=== PATIENT | male | born 1940 | race Caucasian/White ===

== ENCOUNTER 2020-11-02 14:22 | Inpatient (IN) | payer OTHER ==
[~2020-11-02] VITALS: Ht 170.2 cm; Wt 83.0 kg
[~2020-11-02 14:22] MED LIST: ADVAIR 250-501 EACH INH; ASPIRIN81 M2 PO; CRESTOR20 MG PO; GLUCOPHAGE1000 MG PO; HUMALOG100 UNIT/1; HYDROCHLOROTH12.5 MG PO; LANTUSSOLASTAR SUBQ; LISINOPRIL20 MG PO; PLAVIX 75 MG TA75 M1 PO; PROAIR HFA8.5 GM INH; SORINE 80 MG TA80 M1 PO; UROXATRAL PO
[2020-11-02 14:43] VITALS: BP 126/70
[2020-11-02] MEDS ORDERED: LISINOPRIL-HCT1 EAC1 PO (14:49)
[2020-11-02] MEDS ORDERED: TYLENOL325 M1 PO (14:50)
[2020-11-02] MEDS ORDERED: ELIQUIS5 MG PO (14:50)
[2020-11-02] MEDS ORDERED: SYMBICORT160 MCG/4. INH (14:51)
[2020-11-02] MEDS ORDERED: MIRALAX119 GM PO (14:52)
[2020-11-02] MEDS ORDERED: DULCOLAX STOOL100 M1 PO (14:53)
[2020-11-02 16:28] LABS: URINE BILIRUBIN 1+ (Negative); URINE BLOOD 3+ (Negative); URINE CLARITY TURBID; URINE COLOR RED; URINE GLUCOSE-RANDOM* NEGATIVE (Negative); URINE KETONES NEGATIVE (Negative); URINE LEUKOCYTES-REFLEX TRACE (Negative); URINE PROTEIN (DIPSTICK) 3+ (Negative); URINE SPECIFIC GRAVITY 1.025 (1.005-1.035); URINE UROBILINOGEN 0.2 E.U./dl (0.2-1.0)
[2020-11-02 16:29] LABS: URINE NITRITE-REFLEX POSITIVE (Negative)
[2020-11-02 16:30] LABS: ICTOTEST (BILI CONFIRMATORY) Negative (Negative)
[2020-11-02 16:33] LABS: CASTS None Seen /LPF (None Seen); SQUAMOUS None Seen /LPF (0-3); URINE RBC >20 Many /HPF (0-2); URINE WBC-REFLEX >25 Many /HPF (0-5)
[2020-11-02 16:34] LABS: BACTERIA-REFLEX 1-9 Few /HPF (None Seen); CRYSTALS None Seen /LPF (None Seen)
[2020-11-02 16:37] LABS: ABSOLUTE NEUTROPHILS 7.3 thou/uL (1.4-8.2); BASOPHILS 0.5 % (0.0-2.0); EOSINOPHILS 3.9 % (0.0-3.0); HEMATOCRIT 40.4 % (42.0-52.0); HEMOGLOBIN 13.3 gm/dL (14.0-18.0); LYMPHOCYTES 10.2 % (24.0-44.0); MCH 28.7 pg (26.0-34.0); MCHC 32.9 g/dL (28.0-37.0); MCV 87.2 fL (80.0-100.0); MONOCYTES 7.5 % (1.0-8.0); PLATELET COUNT 232 thou/uL (150-400); POLYS 77.9 % (36.0-66.0); RBC 4.63 mil/uL (4.50-6.00); RDW 15.3 % (10.5-14.5); WBC 9.4 thou/uL (4.0-11.0)
[2020-11-02 16:44] LABS: CALCIUM 9.1 mg/dL (8.5-10.1); CREATININE 1.6 mg/dL (0.7-1.3); POTASSIUM 4.8 mmol/L (3.5-5.1)
[2020-11-02 16:51] LABS: ALBUMIN 2.5 g/dL (3.4-5.0); APTT 30.5 Seconds (24.5-32.8); INR 1.1; PROTIME 11.9 Seconds (9.3-11.4); TOTAL BILIRUBIN 0.5 mg/dL (0.2-1.0); TOTAL PROTEIN 6.6 g/dL (6.4-8.2)
[2020-11-02 21:02] VITALS: BP 119/76
[2020-11-02] MEDS ORDERED: SORINE 80 MG TA80 MG PO (21:35)
[2020-11-02] MEDS ORDERED: NAPROSYN500 MG PO (21:35)
[2020-11-02] MEDS ORDERED: LOW DOSE ASPIRI81 M1 PO (21:36)
[2020-11-02] MEDS ORDERED: GLUCOSAMINE CH1 EAC4 PO (21:36)
[2020-11-02] MEDS ORDERED: GLIMEPIRIDE1 MG PO (21:36)
[2020-11-02] MEDS ORDERED: TAMSULOSIN HCL0.4 MG PO (21:37)
[2020-11-02 22:20] VITALS: BP 115/69
[2020-11-03 04:37] VITALS: BP 111/64
--- NOTE | 2020-11-03 05:05 | NUR ---
PT ARRIVED TO UNIT APPROX 2220, SETTLED IN ROOM, ADMISSION AND ASSESSMENT COMPLETED, ALL CONSENTS SIGNED. PT A&Ox4, DENIES SOB--REPORTS HE WEARS 2.5L O2 AT NIGHT FOR COPD (USES A MASK NOT A NC), DENIES NAUSEA. REPORTS LOWER ABD PRESSURE THAT FEELS LIKE HE NEEDS TO URINATE BUT IS UNABLE, OR IF HE DOES URINATE, HE IS UNABLE TO FULLY EMPTY HIS BLADDER. COUDET CATHETER IN PLACE. 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 HE LIVES AT HOME, AND HIS SON LIVES WITH HIM; THE SON HAS A HISTORY OF STROKES AND SEIZURES, AND THE PT HELPS TAKE CARE OF HIM. 2215 FLUSHED THE CATHETER WITH 150 ML STERILE SALINE. PRIOR TO FLUSHING, THE OUTPUT WAS CAMERON RED WITH MANY SMALL CLOTS. POST-IRRIGATION, OUTPUT WAS BRIGHT MARIE RED AND FLOWED EASILY. 0230 IRRIGATED AGAIN WITH 150 ML SALINE. OUTPUT PRIOR TO FLUSH WAS MIXED YELLOW URINE W/BRIGHT RED STREAKS OF BLOOD; AFTER FLUSHING, OUTPUT WAS CLEAR PINK. THIS TIME THERE WAS ALSO A MODERATE AMOUNT OF CAMERON BLOOD AROUND THE INSERTION SITE. PT DOES COMPLAIN OF PAINFUL PRESSURE WHILE IRRIGATING THE CATHETER. HE ALSO SAYS HE IS VERY TENDER ON THE SKIN AROUND THE INSERTION SITE. NO OTHER CONCERNS, WILL CONTINUE TO MONITOR.
[2020-11-03 05:26] LABS: HEMATOCRIT 38.9 % (42.0-52.0); HEMOGLOBIN 12.5 gm/dL (14.0-18.0); MCH 28.3 pg (26.0-34.0); MCHC 32.2 g/dL (28.0-37.0); MCV 87.9 fL (80.0-100.0); RBC 4.42 mil/uL (4.50-6.00); RDW 15.5 % (10.5-14.5); WBC 8.7 thou/uL (4.0-11.0)
[2020-11-03 05:48] LABS: ALBUMIN 1.9 g/dL (3.4-5.0); CALCIUM 8.6 mg/dL (8.5-10.1); CREATININE 1.3 mg/dL (0.7-1.3); POTASSIUM 4.2 mmol/L (3.5-5.1); TOTAL BILIRUBIN 0.4 mg/dL (0.2-1.0)
--- NOTE | 2020-11-03 07:07 | EKG ---
[address] [place] [address] ELECTROCARDIOGRAM REPORT Name: DIAMOND NARAYAN Room #: 434-P ADM IN M.R.#: [id number] Admission: 11/02/20 Attend Phys: Cesar Hope MD Discharge: Date of : 38 Report #: [id number] [facility] ED Test Date: 2020-11-02 Test Time: 16:50:55 Pat Name: DIAMOND NARAYAN Department: Room: 434 Gender: M Renewals Manager: SADE : 1940 Requested By: Link Ivy Order Number: [id number] MD: Zeke Contreras Measurements Intervals [place] Rate: 117 P: -90 FL: 140 QRS: -32 QRSD: 130 T: 4 QT: 342 QTc: 477 Interpretive Statements Sinus or ectopic atrial tachycardia Right bundle branch block Compared to ECG 08/13/2012 13:19:59 Right bundle-branch block now present Sinus rhythm no longer present Atrial premature complex(es) no longer present Electronically Signed On 11-03-2020 7:07:36 RELOCATION COMMISSIONER by Zeke Contreras [email or web address] <ELECTRONICALLY SIGNED> By: Zeke Contreras MD, [facility] 11/03/20 0707 1650 1650 Zeke Contreras MD, [facility] /EPI
[2020-11-03 07:58] VITALS: BP 112/74
--- NOTE | 2020-11-03 08:41 | NUR ---
ASSESSMENT: CM REVIEWED CHART AND SPOKE WITH PATIENT. PT WAS ADMITTED WITH HEMATURIA AND CURRENTLY HAS IN A FOWLEY CATHETER. PT REPORTS THAT HE LIVES IN [place], [place] STATING HE LIVES IN A HOME WITH HIS SON ELVIS. PT REPORTS HE HAS TWO STEPS TO ENTER THE HOME AND A BAR TO HOLD ONTO WHILE ENTERIN. PT REPORTS A SPLIT LEVEL HOME WITH ABOUT 6 STEPS WITH HANDRAILS UP AND 6 STEPS WITH HANDRAILS DOWN. PT REPORTS HE HAS A CANE AND WALKER AT HOME BUT IS NORMALLY INDEPENDENT WITH AMBULATION. PT REPORTS HAVING OXYGEN ARRANGED AT HOME THROUGH [facility] AND REPORTS BASELINE IS ABOUT 2.5L PRN AND AT BEDTIME. PT STATES HE HAS BEEN TO [facility] IN THE PAST. PT STATES HE HAS NOT HAD HH. CM DISCUSSED ROLE. CONSULT WAS IN FOR DISCUSSION ON ADVANCED DIRECTIVE. CM DISCUSSED WITH PATIENT AND HE REPORTS HIS SON ELVIS HAS HAD A FEW STROKES SO IF HE APPOINTED A DPOA HE WOULD LIKELY WANT HIS DAUGHTER ELENA TO BE IT. CM PROVIDED PATIENT WITH DPOA PAPERWORK AND ALSO SPOKE WITH PATIENTS DAUGHTER ELENA WHO WILL BE VISITING PATIENT LATER TODAY. CM WILL CONTINUE TO FOLLOW TO ASSIST NEEDED.
[2020-11-03 16:01] VITALS: BP 90/55
--- NOTE | 2020-11-03 19:31 | NUR ---
PT CARE ASSUMED AT 0700. A&Ox4. NPO. BLADDER IRRIGATED PER ORDER Q3H WITH 150CC UNTIL UROLOGY SEES PT. PT WILL NOT GET OUT OF BED DUE TO HIS KNEES HURTING (ARTHRITIS). DAUGHTER AT BEDSIDE. IV PATENT WITH NO REDNESS OR EDEMA, FLUIDS INFUSING. UROLOGY CALLED TO GET A UPDATE ON WHEN THEY WILL BE HERE. DR. CULP AT BEDSIDE AT 1830. UROLOGY CART REQUESTED. ACHS WITH LOW SLIDING SCALE. PT/OT EVAL COMPLEETED. FALL PROTOCOL IN PLACE. CALL LIGHT IN REACH.
[2020-11-03 20:18] VITALS: BP 94/58
--- NOTE | 2020-11-04 06:02 | NUR ---
RECIEVED CARE OF THIS PATIENT AT 1900. PATIENT ALERT AND ORIENTED X4. HAS ANDREA THAT HAS BEEN FLUSHED APPROXIMATELY Q3HR. URINE STARTS OUT REDDISH WITH CLOTS BUT FLUSH PROGRESSES IT TURNS CLEAR YELLOW WITH NO CLOTS. TOLERATES PROCEDURE. ACCUCHECK WAS 114, NO COVERAGE NEEDED. O2 AT 2L/MASK. HAS SCD'S ON. IV PATENT IN LFA WITH FLUIDS INFUSING. C/O DISCOMFORT ONLY AND DOES NOT WANT ANYTHING FOR IT. SLEPT OFF AND ON DURING NIGHT. NPO SINCE PR FOR PROCEDURE THIS AM.
[2020-11-04 08:06] VITALS: BP 101/64
[2020-11-04 08:49] LABS: HEMATOCRIT 40.5 % (42.0-52.0); HEMOGLOBIN 13.1 gm/dL (14.0-18.0); MCH 28.5 pg (26.0-34.0); MCHC 32.4 g/dL (28.0-37.0); RBC 4.6 mil/uL (4.50-6.00); RDW 15.4 % (10.5-14.5); WBC 6.2 thou/uL (4.0-11.0)
[2020-11-04 09:04] LABS: CALCIUM 8.6 mg/dL (8.5-10.1); CREATININE 1.4 mg/dL (0.7-1.3); POTASSIUM 4.4 mmol/L (3.5-5.1)
[2020-11-04 09:10] VITALS: BP 101/64
--- NOTE | 2020-11-04 12:05 | NUR ---
FAMILY REPORTED POSSIBLE SORE ON PT'S BUTTOCKS. PT TURNED AND DID NOTICE ERYTHEMA BLANCHABLE WITH BRUSIING AROUND COCCYX / BUTTOCKS, BARRIER CREAM APPLIED AND BED LINENS CHUX CHANGED WELL.
--- NOTE | 2020-11-04 15:16 | NUR ---
ON-GOING ASSESSMENT: CM REVIEWED CHART AND SPOKE WITH ATTENDING WHO STATES PATIENT IS POSSIBLE STABLE FOR DISCHARGE OVER THE WEEKEND WITH . PT CURRENTLY HAS [facility]. YESENIA SPOKE WITH [facility] WHO CAN ACCEPT PATIENT AT DISCHARGE. CONTACT [facility] AT DISCHARGE PHONE:[phone]. FAX DISCHARGE ORDERS TO THEM AT FAX:[phone].
--- NOTE | 2020-11-04 16:24 | NUR ---
ON-GOING ASSESSMENT: CM REVIEWED CHART AND SPOKE WITH ATTENDING WHO STATES PATIENT IS POSSIBLE STABLE FOR DISCHARGE OVER THE WEEKEND WITH HH. PT CURRENTLY HAS [facility]. CM SPOKE WITH PT WHO REPORTS HE IS ACTUALLY PLANNING TO STAY WITH HIS DAUGHTER ELENA [address] [address] [place] [address]. CM FAXED REFERRAL TO [facility] AND PROVIDED THEM WITH CONTACT TO PTS DAUGHTER IF NEEDED [phone]. PLEASE FAX/AND CALL [facility] AT TIME OF DISCHARGE. PHONE:[phone]. FAX DISCHARGE ORDERS TO THEM AT FAX:[phone]..
[2020-11-04 16:38] VITALS: BP 100/63
--- NOTE | 2020-11-04 17:39 | NUR ---
FAXED REFERRAL TO [facility] WTG ON CONFIRMATION WILL F/U WITH ANURADHA IN INTAKE TOMORROW.
--- NOTE | 2020-11-04 18:29 | NUR ---
patient progressing towards plan of care. ct today. eating well. continues to have german irrigation. worked with pt.
[2020-11-04 19:22] VITALS: BP 97/52
[2020-11-05 03:15] VITALS: BP 99/57
--- NOTE | 2020-11-05 04:12 | NUR ---
RECIEVED CARE OF THIS PATIENT AT 1900. PATIENT ALERT AND ORIENTED X4. DENIES PAIN. ANDREA IRRIGATED Q3HR WITH 150CC. URINE IS YELLOW WITH JUST AN OCCASIONAL BLOOD CLOT. TOLERATES PROCEDURE WELL. IV IN LFA WITH FLUIDS INFUSING. ACCUCHECK WAS 197. 3UNITS LISPRO INSULIN GIVEN. SLEPT OFF AND ON DURING NIGHT.
[2020-11-05 05:19] LABS: CALCIUM 8.2 mg/dL (8.5-10.1); CREATININE 1.3 mg/dL (0.7-1.3); MAGNESIUM 1.9 mg/dL (1.8-2.4); POTASSIUM 4.2 mmol/L (3.5-5.1)
[2020-11-05 07:00] VITALS: BP 99/65
[2020-11-05] MEDS ORDERED: CEFUROXIME250 MG PO (13:20)
[2020-11-05 18:00] VITALS: BP 112/63
[2020-11-05 19:19] VITALS: BP 101/64
--- NOTE | 2020-11-05 19:30 | NUR ---
PT ASSESSED AT START OF SHIFT. URINE CLEAR YELLOW AT START OF SHIFT. IRRIGATED AND CAME BACK CLEAR AND REMAINED CLEAR FOR ENTIRE SHIFT TO NO FURTHER IRRIGATION NEEDED. PT UP IN THE CHAIR W/ THERAPY FOR SEVERAL HOURS. EATING ADN DRINKING WELL. PT DAUGHTER HERE AT THIS TIME TO TAKE PT TO HER HOME W/ HOME HEALTH. ANDREA REMAINED IN PLACE AND INSTRUCTIONS GIVEN TO PT AND DAUGHTER ON CARE AND EMPTYING OF CATHETER. PT TO F/U W/ UROLOGIST NEXT WEEK.
--- NOTE | 2020-11-07 08:30 | NUR ---
LATE ENTRY 11/04: [facility] CONTACT CM LATE IN AFTERNOON STATING THEY CANNOT ACCEPT PATIENT. CM REQUESTED D/C DRILLING MACHINE RUNNER SEND REFERRAL TO [facility]. CM FOLLOWED UP TODAY AND FAXED D/C ORDERS AND SUMMARY TO [facility] AND SPOKE WITH [place]. SHE CONFIRMED THEY RECEIVED THEM AND HAVE PATIENTS DAUGHTER VINNY ADDRESS AND WILL CONTACT PATIENT TODAY. CM NOTIFIED PATIENTS DAUGHTER ELENA. [facility] WILL FOLLOW UP WITH PT.
== END 2020-11-05 20:00 | disposition home health service (06) | DRG 682 ==
LOC: ER 14:22 → 4S 20:12 → EROBS 20:12 → 4S 22:21
PROVIDERS: Emergency Medicine; Nurse Practitioner Family; Physician Assistant; ADMIT Internal Medicine; ATTEND Internal Medicine
DX: N17.0 Acute kidney failure with tubular necrosis (principal); E43 Unspecified severe protein-calorie malnutrition; R65.11 Systemic inflammatory response syndrome (SIRS) of non-infectious origin with acute organ dysfunction; N39.0 Urinary tract infection, site not specified; J98.11 Atelectasis; N13.8 Other obstructive and reflux uropathy; N17.9 Acute kidney failure, unspecified; R31.0 Gross hematuria; Z20.822 Contact with and (suspected) exposure to COVID-19; M19.90 Unspecified osteoarthritis, unspecified site; J44.9 Chronic obstructive pulmonary disease, unspecified; I25.10 Atherosclerotic heart disease of native coronary artery without angina pectoris; E78.5 Hyperlipidemia, unspecified; I48.0 Paroxysmal atrial fibrillation; I12.9 Hypertensive chronic kidney disease with stage 1 through stage 4 chronic kidney disease, or unspecified chronic kidney disease; N40.1 Benign prostatic hyperplasia with lower urinary tract symptoms; E11.22 Type 2 diabetes mellitus with diabetic chronic kidney disease; R33.8 Other retention of urine; N18.9 Chronic kidney disease, unspecified; B95.8 Unspecified staphylococcus as the cause of diseases classified elsewhere; I25.2 Old myocardial infarction; Z95.5 Presence of coronary angioplasty implant and graft; Z95.1 Presence of aortocoronary bypass graft; Z88.8 Allergy status to other drugs, medicaments and biological substances; Z87.891 Personal history of nicotine dependence; Z85.89 Personal history of malignant neoplasm of other organs and systems
CPT/HCPCS: 10195